=== PATIENT | male | born 1940 | race Two or more races ===

== ENCOUNTER 2018-05-26 00:01 | Emergency (ER) | payer MEDICARE, OTHER ==
[~2018-05-26] VITALS: Ht 182.9 cm; Wt 87.9 kg
[2018-05-26] MEDS ORDERED: ESOM20CA PO (00:21)
[2018-05-26] MEDS ORDERED: ASPI81TA45 PO (00:21)
--- NOTE | 2018-05-26 00:21 | NUR ---
ASSESSMENT MADE. C/O SYNCOPE. SWELLING AT THE BACK OF HEAD NOTED. ALERT AND ORIENTED.
--- NOTE | 2018-05-26 00:26 | NUR ---
BLOOD DRAWN. EKG AND X RAY DONE. AWAITING CT SCAN.
[2018-05-26 00:31] LABS: BASOPHILS # (AUTO) 0.03 x10^3/uL (0-0.1); BASOPHILS % (AUTO) 0 % (0-1); EOSINOPHILS # (AUTO) 0.18 x10^3/uL (0-0.4); EOSINOPHILS % (AUTO) 2 % (1-7); LYMPHOCYTES % (AUTO) 24 % (22-44); MD NO; MEAN CORPUSCULAR HGB CONC 33.6 g/dL (33.2-36.2); MEAN CORPUSCULAR VOLUME 92.1 fL (81-97); MEAN PLATELET VOLUME 7.7 fL (7.4-10.4); MONOCYTES # (AUTO) 0.45 x10^3/uL (0.2-0.8); MONOCYTES % (AUTO) 5 % (2-9); NEUTROPHILS # (AUTO) 6.73 x10^3/uL (1.8-6.8); NEUTROPHILS % (AUTO) 69 % (42-75); PLATELET COUNT 274 x10^3/uL (130-400); RED BLOOD COUNT 4.44 x10^6/uL (4.38-5.82); RED CELL DISTRIBUTION WIDTH 13.7 % (9.4-14.8)
[2018-05-26 00:41] LABS: INTERNATIONAL NORMALIZED RATIO 0.96 (0.93-1.1); PROTHROMBIN TIME 10.2 Seconds (9.6-11.5)
[2018-05-26 00:42] LABS: ALBUMIN 3.5 g/dL (3.4-5.0); ANION GAP 8 mmol/L (5-15); CALCIUM 8.3 mg/dL (8.5-10.1); CHLORIDE 111 mmol/L (98-107); CREATININE 1.19 mg/dL (0.7-1.3)
[2018-05-26 00:45] LABS: TROPONIN I < 0.015 ng/mL (0.000-0.045)
--- NOTE | 2018-05-26 02:05 | NUR ---
PT SLEEPING IN [facility]. ALL MONITORS IN PLACE. CALL LIGHT WITHIN REACH.
[2018-05-26 03:06] VITALS: BP 117/58
--- NOTE | 2018-05-26 03:19 | NUR ---
PT GIVEN DC INSTRUCTIONS. PT GIVEN TAXI VOUCHER AT DC. PT'S AOX4. RESPS EVEN AND UNLABORED. PT AMB TO DC WITH STEADY GAIT. NO ACUTE DISTRESS AT DC.
== END 2018-05-26 03:08 | disposition home or self-care (01) ==
LOC: ED 00:58
DX: S09.90XA Unspecified injury of head, initial encounter (principal); R55 Syncope and collapse; W18.30XA Fall on same level, unspecified, initial encounter; K21.9 Gastro-esophageal reflux disease without esophagitis; Y93.89 Activity, other specified; Y92.89 Other specified places as the place of occurrence of the external cause; Y99.8 Other external cause status
CPT/HCPCS: 36415; 70450; 71045; 80048; 82040; 83880; 84484; 85025; 85610; 85730; 93005; 99284